=== PATIENT | female | born 1955 | race Two or more races ===

== ENCOUNTER 2018-04-20 16:57 | Inpatient (IN) | payer MEDICAID ==
[~2018-04-20] VITALS: Ht 165.1 cm; Wt 62.1 kg
--- NOTE | 2018-04-20 17:11 | Emergency Room Report ---
History of Present Illness General Chief Complaint: General Complaint Source: EMS, PMD Present Illness HPI Patient is a 63-year-old female sent in by intermediate for possible G-tube removal. Patient was noted to have recently had increased oral intake. Patient had prior history of psychiatric disease. The patient was noted to have previous G-tube placement. Allergies: Coded Allergies: No Known Allergies (Unverified , 04/20/18) Patient History Past Medical History: see triage record Reviewed Nursing Documentation: PMH: Agreed; PSxH: Agreed Nursing Documentation-PMH Hx Hypertension: Yes - hyperlipedema Hx COPD: Yes Hx Gastrointestinal Problems: Yes - gerd,gt History Of Psychiatric Problem: Yes - bipolar,depression Review of Systems All Other Systems: limited - by poor cooperation Physical Exam Vital Signs Date Time Temp Pulse Resp B/P (MAP) Pulse Ox O2 Delivery O2 Flow Rate FiO2 04/20/18 16:56 97.8 58 16 98/62 96 Room Air 97.9 Sp02 EP Interpretation: reviewed, normal General Appearance: normal inspection, well appearing, no apparent distress, alert, GCS 15, Chronically Ill Head: atraumatic ENT: normal ENT inspection, hearing grossly normal, normal voice Neck: normal inspection, full range of motion, supple, no bony tend Respiratory: normal inspection, no respiratory distress, no retraction, no accessory muscle use, wheezing Cardiovascular #1: regular rate, rhythm, no edema Gastrointestinal: normal inspection, normal bowel sounds, soft, no guarding, no hernia, other - gtube present, small amount of discharge, no erythema noted Genitourinary: no CVA tenderness Musculoskeletal: normal inspection, back normal, normal range of motion Neurologic: normal inspection, alert, oriented x3, responsive, placement officer III-XII nml as tested, speech normal Psychiatric: anxious, other - agitated Skin: normal inspection, normal color, no rash Medical Decision Making Diagnostic Impression: Primary Impression: Gastrostomy in place Additional Impression: COPD (chronic obstructive pulmonary disease) ER Course Patient presented for possible Gtube removal. The differential diagnosis included was not limited to psychosis, poor feeding, stoma leak among others.Because of complexity of patient's case laboratory testing and imaging studies were ordered. Preop labs were ordered. The patient was noted to have been awake and alert.Laboratory studies were unremarkable. Patient was discussed with Dr. Zana Lim for inpatient management due to primary care physician. Labs Test 04/20/18 17:20 White Blood Count 6.6 K/UL (4.8-10.8) Red Blood Count 3.71 M/UL (4.20-5.40) Hemoglobin 12.2 G/DL (12.0-16.0) Hematocrit 34.1 % (37.0-47.0) Mean Corpuscular Volume 92 FL (80-99) Mean Corpuscular Hemoglobin 32.8 PG (27.0-31.0) Mean Corpuscular Hemoglobin Concent 35.7 G/DL (32.0-36.0) Red Cell Distribution Width 11.8 % (11.6-14.8) Platelet Count 201 K/UL (150-450) Mean Platelet Volume 8.3 FL (6.5-10.1) Neutrophils (%) (Auto) 43.5 % (45.0-75.0) Lymphocytes (%) (Auto) 42.3 % (20.0-45.0) Monocytes (%) (Auto) 11.8 % (1.0-10.0) Eosinophils (%) (Auto) 1.6 % (0.0-3.0) Basophils (%) (Auto) 0.8 % (0.0-2.0) Prothrombin Time 10.2 SEC (9.30-11.50) Prothromb Time International Ratio 1.0 (0.9-1.1) Activated Partial Thromboplast Time 26 SEC (23-33) Sodium Level 143 MMOL/L (136-145) Potassium Level 4.1 MMOL/L (3.5-5.1) Chloride Level 106 MMOL/L (98-107) Carbon Dioxide Level 31 MMOL/L (21-32) Anion Gap 6 mmol/L (5-15) Blood Urea Nitrogen 14 mg/dL (7-18) Creatinine 0.8 MG/DL (0.55-1.30) Estimat Glomerular Filtration Rate > 60 mL/min (>60) Glucose Level 97 MG/DL (74-106) Calcium Level 8.5 MG/DL (8.5-10.1) Total Bilirubin 1.0 MG/DL (0.2-1.0) Aspartate Amino Transf (AST/SGOT) 15 U/L (15-37) Alanine Aminotransferase (ALT/SGPT) 20 U/L (12-78) Alkaline Phosphatase 84 U/L (46-116) Total Protein 6.7 G/DL (6.4-8.2) Albumin 3.4 G/DL (3.4-5.0) Globulin 3.3 g/dL Albumin/Globulin Ratio 1.0 (1.0-2.7) Lipase 130 U/L (73-393) Last Vital Signs Date Time Temp Pulse Resp B/P (MAP) Pulse Ox O2 Delivery O2 Flow Rate FiO2 04/20/18 16:56 97.8 58 16 98/62 96 Room Air 97.9 Status: unchanged Disposition: ADMITTED INPATIENT Condition: Serious Michael Thurman MD April 20, 2018 17:11
[2018-04-20] MEDS ORDERED: Nitroglycerin Subl 0.4mg tab SL PRN (17:30)
[2018-04-20] MEDS ORDERED: Metoclopramide 10mg/2ml Inj IVP PRN (17:30)
[2018-04-20] MEDS ORDERED: Miralax 17gm pkt ORAL PRN (17:30)
[2018-04-20] MEDS ORDERED: Promethazine HCl 12.5 MG in NS 55 ML IV PRN (17:30)
[2018-04-20] MEDS ORDERED: Promethazine HCl 25 MG in NS 55 ML IV PRN (17:30)
[2018-04-20] MEDS ORDERED: Mylanta II UD 30ml ORAL PRN (17:30)
[2018-04-20 17:39] LABS: BASOPHILS % (AUTO) 0.8 % (0.0-2.0); EOSINOPHILS % (AUTO) 1.6 % (0.0-3.0); HEMATOCRIT 34.1 % (37.0-47.0); HEMOGLOBIN 12.2 G/DL (12.0-16.0); LYMPHOCYTES % (AUTO) 42.3 % (20.0-45.0); MEAN CORPUSCULAR VOLUME 92 FL (80-99); MONOCYTES % (AUTO) 11.8 % (1.0-10.0); NEUTROPHILS % (AUTO) 43.5 % (45.0-75.0); PLATELET COUNT 201 K/UL (150-450); RED BLOOD COUNT 3.71 M/UL (4.20-5.40); RED CELL DISTRIBUTION WIDTH 11.8 % (11.6-14.8); WHITE BLOOD COUNT 6.6 K/UL (4.8-10.8)
[2018-04-20 17:47] LABS: ANION GAP 6 mmol/L (5-15); BLOOD UREA NITROGEN 14 mg/dL (7-18); CALCIUM 8.5 MG/DL (8.5-10.1); CARBON DIOXIDE 31 MMOL/L (21-32); CHLORIDE 106 MMOL/L (98-107); CREATININE 0.8 MG/DL (0.55-1.30); POTASSIUM 4.1 MMOL/L (3.5-5.1); SODIUM 143 MMOL/L (136-145)
[2018-04-20 17:50] LABS: ALANINE AMINOTRANSFERASE 20 U/L (12-78); ALBUMIN 3.4 G/DL (3.4-5.0); ALKALINE PHOSPHATASE 84 U/L (46-116); ASPARTATE AMINO TRANSFERASE 15 U/L (15-37)
[2018-04-20] MEDS: D5 1/2NS 1,000 ML IV SCH (18:00)
[2018-04-20 18:08] VITALS: BP 126/78
[2018-04-20] MEDS ORDERED: UNOBMED (18:09)
[2018-04-20] MEDS ORDERED: MILK OF MA400 MG/51 GT (18:19)
[2018-04-20] MEDS ORDERED: mylanta GT (18:19)
[2018-04-20] MEDS ORDERED: ASPIR 8181 MG GT (18:19)
[2018-04-20] MEDS ORDERED: LEXAPRO10 MG GT (18:19)
[2018-04-20] MEDS ORDERED: RISPERDAL2 MG ORAL (18:19)
[2018-04-20] MEDS ORDERED: MULTIVITAMINS1 EAC8 GT (18:19)
[2018-04-20] MEDS ORDERED: ACETAMINOPHEN325 M1 ORAL (18:19)
[2018-04-20] MEDS ORDERED: ACETAMINOPHEN325 M1 GT (18:19)
[2018-04-20] MEDS ORDERED: ATORVASTATIN CA40 MG GT (18:19)
[2018-04-20] MEDS ORDERED: RISPERDAL3 MG PO (18:48)
[2018-04-20] MEDS ORDERED: ATORVASTATIN CA80 MG GT (18:58)
[2018-04-20] MEDS ORDERED: ESCITALOPRAM OXA5 MG GT (18:58)
[2018-04-20] MEDS ORDERED: MYLANTA II30 ML GT (18:58)
[2018-04-20 19:25] VITALS: BP 125/74
[2018-04-20 20:10] VITALS: BP 101/55
[2018-04-20] MEDS: Heparin 5000 units/ml inj SUBQ SCH (20:20)
[2018-04-21 00:26] VITALS: BP 127/69
[2018-04-21 04:00] VITALS: BP 120/61
[2018-04-21] MEDS: D5 1/2NS 1,000 ML IV SCH ×2 (06:17→20:53)
[2018-04-21] MEDS: Heparin 5000 units/ml inj SUBQ SCH ×2 (08:43→20:52)
[2018-04-21] MEDS: Pantoprazole Inj IV SCH (08:43)
[2018-04-21] MEDS ORDERED: LORazepam Inj 2mg/ml 1ml IV ONE (10:30)
[2018-04-21] MEDS ORDERED: Haloperidol 5mg/ml Inj IM SCH (10:30)
[2018-04-21] MEDS ORDERED: DiphenhydrAMINE 50mg/ml Inj IVP ONE (10:30)
[2018-04-21] MEDS ORDERED: LORazepam Inj 2mg/ml 1ml IM SCH (10:45)
[2018-04-21] MEDS ORDERED: DiphenhydrAMINE 50mg/ml Inj IM SCH (10:45)
--- NOTE | 2018-04-21 10:56 | GI Initial Consult Note ---
History of Present Illness General Date patient seen: Apr 21, 2018 Time patient seen: 13:46 Reason for Hospitalization: General Complaint Referring physician: NAEL PISANO Reason for Consultation: GT REMOVAL Present Illness HPI Patient is a 63-year-old female [facility] by [facility] for possible G-tube removal. Patient was noted to have recently had increased oral intake. Patient had prior history of psychiatric disease. The patient was noted to have previous G-tube placement. GI consulted for GT removal. Unable to perform at this time, the patient is non cooperative and has been refusing all medications and nursing care. Psychiatry has seen the patient. No anemia. No leukocytosis. The patient is verbal and shows no sign of dysphagia or deficit. Home Meds Reported Medications Al Hydroxide/mg Hydroxide (Mag-Al Plus Suspension) 30 Ml Oral.susp, 30 ML GT, ML PRN GI UPSET 04/20/18 Escitalopram Oxalate (ESCITALOPRAM OXALATE) 5 Mg Tablet, 5 MG GT DAILY, TAB FOR DEPRESSION 04/20/18 Atorvastatin Calcium* (LIPITOR*) 80 Mg Tablet, 80 MG GT DAILY, TAB 04/20/18 Risperidone (RISPERDAL) 3 Mg Tablet, 3 MG PO BID, TAB FOR SCHIZOPHRENIA 04/20/18 Acetaminophen* (ACETAMINOPHEN 325MG TABLET*) 325 Mg Tablet, 650 MG GT Q4H PRN for Prn Headache/Temp > 101 MDD 3 GRAMS/24HRS, TAB 04/20/18 Acetaminophen* (ACETAMINOPHEN 325MG TABLET*) 325 Mg Tablet, 650 MG ORAL Q4H PRN for Mild Pain (Pain Scale 1-3) MDD 3 GRAMS/24HRS, TAB 04/20/18 Multivitamin With Minerals (MULTIVITAMINS WITH MINERALS*) 1 Each Tablet, 1 TAB GT DAILY, TAB 04/20/18 Magnesium Hydroxide* (MILK OF MAGNESIA*) 400 Mg/5 Ml Oral.susp, 30 ML GT DAILY PRN for Constipation, ML 04/20/18 Aspirin* (ASPIR 81*) 81 Mg Tablet.dr, 81 MG GT DAILY, TAB 04/20/18 Unable to Obtain Medications (UNABLE TO OBTAIN MEDS) 1 Ea Ea 04/20/18 Discontinued Reported Medications Risperidone* (RISPERDAL*) 2 Mg Tablet, 3 MG ORAL BID, #30 TAB 0 Refills 04/20/18 [mylanta] No Conflict Check, 30 ML GT PRN 5/31/18 Escitalopram Oxalate* (LEXAPRO*) 10 Mg Tablet, 5 MG GT DAILY, TAB 04/20/18 Atorvastatin Calcium* (ATORVASTATIN CALCIUM*) 40 Mg Tablet, 80 MG GT BEDTIME, TAB 04/20/18 Med list reviewed/reconciled: Yes Allergies: Coded Allergies: No Known Allergies (Unverified , 04/20/18) Patient History History Provided By: Medical Record PMH Narrative Past Medical History: see triage record Reviewed Nursing Documentation: PMH: Agreed; PSxH: Agreed Nursing Documentation-PMH Hx Hypertension: Yes - hyperlipidemia Hx COPD: Yes Hx Gastrointestinal Problems: Yes - GERD, GT removal History Of Psychiatric Problem: Yes - bipolar,depression Social History: Denies: smoking, alcohol use, drug use, other Review of Systems All Other Systems: negative except mentioned in HPI Physical Exam Vital Signs Date Time Temp Pulse Resp B/P (MAP) Pulse Ox O2 Delivery O2 Flow Rate FiO2 04/20/18 16:56 97.8 58 16 98/62 96 Room Air 97.9 Sp02 EP Interpretation: reviewed, normal Labs Laboratory Tests Test 04/20/18 17:20 White Blood Count 6.6 K/UL (4.8-10.8) Red Blood Count 3.71 M/UL (4.20-5.40) L Hemoglobin 12.2 G/DL (12.0-16.0) Hematocrit 34.1 % (37.0-47.0) L Mean Corpuscular Volume 92 FL (80-99) Mean Corpuscular Hemoglobin 32.8 PG (27.0-31.0) H Mean Corpuscular Hemoglobin Concent 35.7 G/DL (32.0-36.0) Red Cell Distribution Width 11.8 % (11.6-14.8) Platelet Count 201 K/UL (150-450) Mean Platelet Volume 8.3 FL (6.5-10.1) Neutrophils (%) (Auto) 43.5 % (45.0-75.0) L Lymphocytes (%) (Auto) 42.3 % (20.0-45.0) Monocytes (%) (Auto) 11.8 % (1.0-10.0) H Eosinophils (%) (Auto) 1.6 % (0.0-3.0) Basophils (%) (Auto) 0.8 % (0.0-2.0) Prothrombin Time 10.2 SEC (9.30-11.50) Prothromb Time International Ratio 1.0 (0.9-1.1) Activated Partial Thromboplast Time 26 SEC (23-33) Sodium Level 143 MMOL/L (136-145) Potassium Level 4.1 MMOL/L (3.5-5.1) Chloride Level 106 MMOL/L (98-107) Carbon Dioxide Level 31 MMOL/L (21-32) Anion Gap 6 mmol/L (5-15) Blood Urea Nitrogen 14 mg/dL (7-18) Creatinine 0.8 MG/DL (0.55-1.30) Estimat Glomerular Filtration Rate > 60 mL/min (>60) Glucose Level 97 MG/DL (74-106) Calcium Level 8.5 MG/DL (8.5-10.1) Total Bilirubin 1.0 MG/DL (0.2-1.0) Aspartate Amino Transf (AST/SGOT) 15 U/L (15-37) Alanine Aminotransferase (ALT/SGPT) 20 U/L (12-78) Alkaline Phosphatase 84 U/L (46-116) Total Protein 6.7 G/DL (6.4-8.2) Albumin 3.4 G/DL (3.4-5.0) Globulin 3.3 g/dL Albumin/Globulin Ratio 1.0 (1.0-2.7) Lipase 130 U/L (73-393) General Appearance: well appearing, no apparent distress, alert Head: normocephalic EENT: PERRL/EOMI, normal ENT inspection Neck: supple Respiratory: normal breath sounds, no respiratory distress Cardiovascular: normal rate Gastrointestinal: normal inspection, non tender, soft, normal bowel sounds, non -distended Rectal: deferred Genitourinary: no CVA tenderness Musculoskeletal: normal inspection, back normal Neurologic: alert, responsive Psychiatric: other - see pysch note Skin: normal inspection, normal color, no rash, warm/dry, palpation normal, well hydrated Lymphatic: normal inspection, no adenopathy Current Medications Current Medications Medications (Trade) Dose Ordered Sig/Osito Route PRN Reason Start Time Stop Time Status Last Admin Dose Admin Acetaminophen (Tylenol) 650 mg Q4H PRN ORAL fever (temp>100.5F) 04/20/18 17:30 05/20/18 17:29 Al Hydroxide/Mg Hydroxide (Mylanta II) 30 ml Q6H PRN ORAL dyspepsia 04/20/18 17:30 05/20/18 17:29 Dextrose (Dextrose 50%) 25 ml STAT PRN IV hypoglycemia 04/20/18 17:45 05/20/18 17:44 Dextrose (Dextrose 50%) 50 ml STAT PRN IV Hypoglycemia 04/20/18 17:30 05/20/18 17:29 Dextrose/Sodium Chloride 1,000 ml @ 75 mls/hr [id number] IV 04/20/18 18:00 05/20/18 17:59 04/21/18 06:17 Diphenhydramine HCl (Benadryl) 25 mg ONCE IM 04/21/18 10:45 04/21/18 11:45 Diphenhydramine HCl (Benadryl) 25 mg Q6H PRN ORAL Itching/Pruritis 04/20/18 17:30 05/20/18 17:29 Haloperidol Lactate (Haldol) 5 mg ONCE IM 04/21/18 10:30 04/21/18 11:45 Heparin Sodium (Porcine) (Heparin 5000 units/ml) 5,000 units EVERY 12 HOURS SUBQ 04/20/18 21:00 05/20/18 20:59 Lorazepam (Ativan 2mg/ml 1ml) 1 mg ONCE IM 04/21/18 10:45 04/21/18 11:45 Lorazepam (Ativan 2mg/ml 1ml) 1 mg Q4H PRN IV agitation 04/20/18 17:30 04/27/18 17:29 Metoclopramide HCl (Reglan) 10 mg Q6H PRN IVP severe nausea 04/20/18 17:30 05/20/18 17:29 Nitroglycerin (Ntg) 0.4 mg Q5M X 3 DOSES PRN SL Prn Chest Pain 04/20/18 17:30 05/20/18 17:29 Ondansetron HCl (Zofran) 4 mg Q6H PRN IVP Nausea & Vomiting 04/20/18 17:30 05/20/18 17:29 Pantoprazole (Protonix) 40 mg DAILY IV 04/21/18 09:00 05/21/18 08:59 Polyethylene Glycol (Miralax) 17 gm HSPRN PRN ORAL Constipation 04/20/18 17:30 05/20/18 17:29 Promethazine HCl 25 mg/Sodium Chloride 56 ml @ 110 mls/hr Q6H PRN IV Refractory N/V 04/20/18 17:30 05/20/18 17:29 Temazepam (Restoril) 15 mg HSPRN PRN ORAL Insomnia 04/20/18 17:30 04/27/18 17:29 GI: Plan Problems: (1) G tube feedings (2) Gastrostomy in place Plan GT removed @ 1500, no shower for 24 hours. Prn dressing change. pt refusing all medication and care at this time the patient appears to have no signs of dysphagia or swallowing deficit will adv diet as tolerated ST evaluation refused by patient psych to see symptomatic treatment fu labs Discussed with Dr. Reynolds. Thank you for this patient referral, we will follow. The patient was seen and examined at bedside and all new and available data was reviewed in the patients chart. I agree with the above findings, impression and plan. (Patient seen earlier today. Signature stamp does not reflect patient encounter time.). - MD Kaycee TreadwellReunion Rehabilitation Hospital PhoenixArceliaEzekiel MEAT COUNTER CLERK Apr 21, 2018 10:56
--- NOTE | 2018-04-21 12:20 | Consultation ---
History of Present Illness General Date patient seen: Apr 21, 2018 Chief Complaint: General Complaint Present Illness HPI 63-year-old female sent in by half-way for possible G-tube removal. the pt is uncooperative and refusing care. not answering questions. poor insight. lacks capacity Allergies: Coded Allergies: No Known Allergies (Unverified , 04/20/18) Medication History Scheduled Aspirin* (Aspir 81*), 81 MG GT DAILY, (Reported) Atorvastatin Calcium* (Lipitor*), 80 MG GT DAILY, (Reported) Escitalopram Oxalate (Escitalopram Oxalate), 5 MG GT DAILY, (Reported) Multivitamin With Minerals (Multivitamins With Minerals*), 1 TAB GT DAILY, ( Reported) Risperidone (Risperdal), 3 MG PO BID, (Reported) Scheduled PRN Acetaminophen* (Acetaminophen 325MG Tablet*), 650 MG ORAL Q4H PRN for Mild Pain (Pain Scale 1-3), (Reported) Acetaminophen* (Acetaminophen 325MG Tablet*), 650 MG GT Q4H PRN for Prn Headache /Temp > 101, (Reported) Magnesium Hydroxide* (Milk Of Magnesia*), 30 ML GT DAILY PRN for Constipation, ( Reported) Miscellaneous Medications Al Hydroxide/mg Hydroxide (Mag-Al Plus Suspension), 30 ML GT, (Reported) Unable to Obtain Medications (Unable To Obtain Meds), (Reported) Discontinued Medications Atorvastatin Calcium* (Atorvastatin Calcium*), 80 MG GT BEDTIME, (Reported) Discontinued Reason: Prescription changed Escitalopram Oxalate* (Lexapro*), 5 MG GT DAILY, (Reported) Discontinued Reason: Prescription changed Risperidone* (Risperdal*), 3 MG ORAL BID, (Reported) Discontinued Reason: Prescription changed [mylanta], 30 ML GT PRN, (Reported) Discontinued Reason: Prescription changed Patient History Healthcare decision maker Resuscitation status Advanced Directive on File Review of Systems Psychiatric: Reports: prior hx, depressed feelings, emotional problems, hallucinations Physical Exam General Appearance: no apparent distress, alert Neurologic: alert, depressed affect Last 24 Hour Vital Signs Date Time Temp Pulse Resp B/P (MAP) Pulse Ox O2 Delivery O2 Flow Rate FiO2 04/21/18 05:27 Room Air 04/21/18 04:00 98.0 58 20 120/61 95 Room Air 98.0 04/21/18 00:26 98.0 60 18 127/69 97 Room Air 98.0 04/20/18 20:10 97.7 54 17 101/55 96 Room Air 97.7 04/20/18 19:40 98.2 72 17 125/74 100 Room Air 98.2 04/20/18 19:25 98.2 72 17 125/74 100 Room Air 98.2 04/20/18 18:08 98.1 71 18 126/78 99 Room Air 98.1 04/20/18 16:56 97.8 58 16 98/62 96 Room Air 97.9 Intake and Output 04/20/18 04/21/18 19:00 07:00 Intake Total 0 ml 750 ml Balance 0 ml 750 ml Intake Oral 0 ml IV Total 750 ml # Voids 1 Laboratory Tests Test 04/20/18 17:20 White Blood Count 6.6 K/UL (4.8-10.8) Red Blood Count 3.71 M/UL (4.20-5.40) L Hemoglobin 12.2 G/DL (12.0-16.0) Hematocrit 34.1 % (37.0-47.0) L Mean Corpuscular Volume 92 FL (80-99) Mean Corpuscular Hemoglobin 32.8 PG (27.0-31.0) H Mean Corpuscular Hemoglobin Concent 35.7 G/DL (32.0-36.0) Red Cell Distribution Width 11.8 % (11.6-14.8) Platelet Count 201 K/UL (150-450) Mean Platelet Volume 8.3 FL (6.5-10.1) Neutrophils (%) (Auto) 43.5 % (45.0-75.0) L Lymphocytes (%) (Auto) 42.3 % (20.0-45.0) Monocytes (%) (Auto) 11.8 % (1.0-10.0) H Eosinophils (%) (Auto) 1.6 % (0.0-3.0) Basophils (%) (Auto) 0.8 % (0.0-2.0) Prothrombin Time 10.2 SEC (9.30-11.50) Prothromb Time International Ratio 1.0 (0.9-1.1) Activated Partial Thromboplast Time 26 SEC (23-33) Sodium Level 143 MMOL/L (136-145) Potassium Level 4.1 MMOL/L (3.5-5.1) Chloride Level 106 MMOL/L (98-107) Carbon Dioxide Level 31 MMOL/L (21-32) Anion Gap 6 mmol/L (5-15) Blood Urea Nitrogen 14 mg/dL (7-18) Creatinine 0.8 MG/DL (0.55-1.30) Estimat Glomerular Filtration Rate > 60 mL/min (>60) Glucose Level 97 MG/DL (74-106) Calcium Level 8.5 MG/DL (8.5-10.1) Total Bilirubin 1.0 MG/DL (0.2-1.0) Aspartate Amino Transf (AST/SGOT) 15 U/L (15-37) Alanine Aminotransferase (ALT/SGPT) 20 U/L (12-78) Alkaline Phosphatase 84 U/L (46-116) Total Protein 6.7 G/DL (6.4-8.2) Albumin 3.4 G/DL (3.4-5.0) Globulin 3.3 g/dL Albumin/Globulin Ratio 1.0 (1.0-2.7) Lipase 130 U/L (73-393) Height (Feet): 5 Height (Inches): 5.00 Weight (Pounds): 137 Medications Current Medications Medications (Trade) Dose Ordered Sig/Osito Route PRN Reason Start Time Stop Time Status Last Admin Dose Admin Acetaminophen (Tylenol) 650 mg Q4H PRN ORAL fever (temp>100.5F) 04/20/18 17:30 05/20/18 17:29 Al Hydroxide/Mg Hydroxide (Mylanta II) 30 ml Q6H PRN ORAL dyspepsia 04/20/18 17:30 05/20/18 17:29 Dextrose (Dextrose 50%) 25 ml STAT PRN IV hypoglycemia 04/20/18 17:45 05/20/18 17:44 Dextrose (Dextrose 50%) 50 ml STAT PRN IV Hypoglycemia 04/20/18 17:30 05/20/18 17:29 Dextrose/Sodium Chloride 1,000 ml @ 75 mls/hr [id number] IV 04/20/18 18:00 05/20/18 17:59 04/21/18 06:17 Diphenhydramine HCl (Benadryl) 25 mg Q6H PRN ORAL Itching/Pruritis 04/20/18 17:30 05/20/18 17:29 Heparin Sodium (Porcine) (Heparin 5000 units/ml) 5,000 units EVERY 12 HOURS SUBQ 04/20/18 21:00 05/20/18 20:59 Lorazepam (Ativan 2mg/ml 1ml) 1 mg Q4H PRN IV agitation 04/20/18 17:30 04/27/18 17:29 Metoclopramide HCl (Reglan) 10 mg Q6H PRN IVP severe nausea 04/20/18 17:30 05/20/18 17:29 Nitroglycerin (Ntg) 0.4 mg Q5M X 3 DOSES PRN SL Prn Chest Pain 04/20/18 17:30 05/20/18 17:29 Ondansetron HCl (Zofran) 4 mg Q6H PRN IVP Nausea & Vomiting 04/20/18 17:30 05/20/18 17:29 Pantoprazole (Protonix) 40 mg DAILY IV 04/21/18 09:00 05/21/18 08:59 Polyethylene Glycol (Miralax) 17 gm HSPRN PRN ORAL Constipation 04/20/18 17:30 05/20/18 17:29 Promethazine HCl 25 mg/Sodium Chloride 56 ml @ 110 mls/hr Q6H PRN IV Refractory N/V 04/20/18 17:30 05/20/18 17:29 Temazepam (Restoril) 15 mg HSPRN PRN ORAL Insomnia 04/20/18 17:30 04/27/18 17:29 Assessment/Plan Assessment/Plan mdd psychosis -the pt lacks capacity to make decisions -zyprexa 10mg qhs -lexapro increase to 15mg qam -Dewayne Castellanos M.D. Apr 21, 2018 12:20
[2018-04-21] MEDS ORDERED: Escitalopram Oxalate 5mg tab ORAL SCH (13:00)
[2018-04-21] MEDS: LORazepam Inj 2mg/ml 1ml IV PRN (15:39)
[2018-04-21 16:00] VITALS: BP 114/69
[2018-04-21] MEDS: Morphine 5mg/2.5ml Oral Soln ORAL PRN (17:25)
--- NOTE | 2018-04-21 18:02 | History and Physical Report ---
DATE OF ADMISSION: 04/20/2018 CONSULTANTS: 1. Clif Reynolds M.D. 2. Elsa Singh M.D. 3. Dewayne Lazaro M.D. CHIEF COMPLAINT: Here for G-tube adjustment, COPD, weakness and confusion. BRIEF HISTORY: This is a 63-year-old female, who lives at [facility] with history of G-tube placement for failure to thrive. Apparently, she has been eating. The patient was sent to ER to remove G-tube. They were unable to do so. The patient was admitted for G-tube removal. Currently, confused in bed, refusing to answer questions. REVIEW OF SYSTEMS: Unavailable. PAST MEDICAL HISTORY: Encephalopathy, schizophrenia, COPD, CRF, hypertension, and failure to thrive. PAST SURGICAL HISTORY: G-tube. MEDICATIONS: Zyprexa, Lexapro, Protonix, heparin, Tylenol, MiraLAX, Zofran, Benadryl, Mylanta . ALLERGIES: Denies. SOCIAL HISTORY: Unable to obtain secondary to the patient's refusal. PHYSICAL EXAMINATION: GENERAL: Lethargic in bed, sleepy, refusing to answer questions. VITAL SIGNS: Temperature 98 degrees, pulse 58, respirations 20, and blood pressure 120/61. CARDIOVASCULAR: No murmur. LUNGS: Distant and clear. ABDOMEN: Bowel sounds positive. Nontender. Nondistended. EXTREMITIES: No cyanosis or edema. NEUROLOGIC: The patient moves all extremities, does not follow commands. LABORATORY AND DIAGNOSTIC DATA: CBC is normal. BMP is normal. INR is 1.0 and PTT 26. ASSESSMENT: 1. Encephalopathy. 2. Schizophrenia. 3. Chronic obstructive pulmonary disease. 4. Hypertension. 5. History of failure to thrive. PLAN: 1. Continue previous medications. 2. Blood pressure control. 3. Psychiatric treatment. 4. Dietary follow. 5. OT/PT. 6. Dietary evaluation. 7. CBC and BMP in the morning. 8. GI to remove G-tube if indicated. Zana Lim D.O. DR: BASILIO JOB#: [id number] CC:
[2018-04-21 19:28] VITALS: BP 115/65
--- NOTE | 2018-04-21 20:09 | Consultation ---
History of Present Illness General Date patient seen: Apr 21, 2018 Chief Complaint: General Complaint Referring physician: NAEL PISANO Reason for Consultation: GT REMOVAL Present Illness HPI 63-year-old female with hx of COPD, psychosis, depression, feeding by gtube, correction resident sent in by correction for possible G-tube removal. Patient was noted to have recently had increased oral intake. Pt is a very poor historian and doesn't answer any questions. Seems to be awake and comfortable. Allergies: Coded Allergies: No Known Allergies (Unverified , 04/20/18) Medication History Scheduled Aspirin* (Aspir 81*), 81 MG GT DAILY, (Reported) Atorvastatin Calcium* (Lipitor*), 80 MG GT DAILY, (Reported) Escitalopram Oxalate (Escitalopram Oxalate), 5 MG GT DAILY, (Reported) Multivitamin With Minerals (Multivitamins With Minerals*), 1 TAB GT DAILY, ( Reported) Risperidone (Risperdal), 3 MG PO BID, (Reported) Scheduled PRN Acetaminophen* (Acetaminophen 325MG Tablet*), 650 MG ORAL Q4H PRN for Mild Pain (Pain Scale 1-3), (Reported) Acetaminophen* (Acetaminophen 325MG Tablet*), 650 MG GT Q4H PRN for Prn Headache /Temp > 101, (Reported) Magnesium Hydroxide* (Milk Of Magnesia*), 30 ML GT DAILY PRN for Constipation, ( Reported) Miscellaneous Medications Al Hydroxide/mg Hydroxide (Mag-Al Plus Suspension), 30 ML GT, (Reported) Unable to Obtain Medications (Unable To Obtain Meds), (Reported) Discontinued Medications Atorvastatin Calcium* (Atorvastatin Calcium*), 80 MG GT BEDTIME, (Reported) Discontinued Reason: Prescription changed Escitalopram Oxalate* (Lexapro*), 5 MG GT DAILY, (Reported) Discontinued Reason: Prescription changed Risperidone* (Risperdal*), 3 MG ORAL BID, (Reported) Discontinued Reason: Prescription changed [mylanta], 30 ML GT PRN, (Reported) Discontinued Reason: Prescription changed Patient History Healthcare decision maker Resuscitation status Advanced Directive on File Past Medical/Surgical History Past Medical/Surgical History: (1) Psychosis (2) Depression (3) Gastrostomy in place Review of Systems All Other Systems: negative except mentioned in HPI Physical Exam General Appearance: WD/WN, no apparent distress, lethargic Lines, tubes and drains: peripheral HEENT: normocephalic, atraumatic, anicteric, mucous membranes moist Neck: non-tender, normal alignment, supple Respiratory/Chest: chest wall non-tender, lungs clear, normal breath sounds, no respiratory distress Breasts: no masses Cardiovascular/Chest: normal peripheral pulses, normal rate, regular rhythm, regularly irregular Abdomen: normal bowel sounds, non tender, soft, no organomegaly, no mass Genitourinary/Rectal: normal genital exam Extremities: normal range of motion, non-tender, normal inspection, no calf tenderness, normal capillary refill Skin Exam: normal pigmentation Neurologic: rn appeals II-XII grossly normal Physical Exam Narrative General Appearance: WD/WN HEENT: normocephalic, atraumatic Respiratory/Chest: chest wall non-tender, lungs clear Breasts: no masses Cardiovascular: normal peripheral pulses, normal rate Abdomen: normal bowel sounds, soft, non tender Genitourinary: normal external genitalia Extremities: no cyanosis Last 24 Hour Vital Signs Date Time Temp Pulse Resp B/P (MAP) Pulse Ox O2 Delivery O2 Flow Rate FiO2 04/21/18 19:28 97.5 62 16 115/65 97 Room Air 97.5 04/21/18 16:00 96.8 58 19 114/69 97 Room Air 96.8 04/21/18 05:27 Room Air 04/21/18 04:00 98.0 58 20 120/61 95 Room Air 98.0 04/21/18 00:26 98.0 60 18 127/69 97 Room Air 98.0 04/20/18 20:10 97.7 54 17 101/55 96 Room Air 97.7 Intake and Output 04/20/18 04/21/18 19:00 07:00 Intake Total 0 ml 750 ml Balance 0 ml 750 ml Intake Oral 0 ml IV Total 750 ml # Voids 1 Height (Feet): 5 Height (Inches): 5.00 Weight (Pounds): 137 Medications Current Medications Medications (Trade) Dose Ordered Sig/Osito Route PRN Reason Start Time Stop Time Status Last Admin Dose Admin Acetaminophen (Tylenol) 650 mg Q4H PRN ORAL fever (temp>100.5F) 04/20/18 17:30 05/20/18 17:29 Al Hydroxide/Mg Hydroxide (Mylanta II) 30 ml Q6H PRN ORAL dyspepsia 04/20/18 17:30 05/20/18 17:29 Dextrose (Dextrose 50%) 25 ml STAT PRN IV hypoglycemia 04/20/18 17:45 05/20/18 17:44 Dextrose (Dextrose 50%) 50 ml STAT PRN IV Hypoglycemia 04/20/18 17:30 05/20/18 17:29 Dextrose/Sodium Chloride 1,000 ml @ 75 mls/hr [id number] IV 04/20/18 18:00 05/20/18 17:59 04/21/18 06:17 Diphenhydramine HCl (Benadryl) 25 mg Q6H PRN ORAL Itching/Pruritis 04/20/18 17:30 05/20/18 17:29 Escitalopram Oxalate (Lexapro) 15 mg DAILY ORAL 04/22/18 09:00 05/22/18 08:59 Heparin Sodium (Porcine) (Heparin 5000 units/ml) 5,000 units EVERY 12 HOURS SUBQ 04/20/18 21:00 05/20/18 20:59 Lorazepam (Ativan 2mg/ml 1ml) 1 mg Q4H PRN IV agitation 04/20/18 17:30 04/27/18 17:29 04/21/18 15:39 Metoclopramide HCl (Reglan) 10 mg Q6H PRN IVP severe nausea 04/20/18 17:30 05/20/18 17:29 Morphine Sulfate (Morphine 5mg/ 2.5ml Oral Soln) 5 mg Q4H PRN ORAL For Pain 04/21/18 15:45 05/21/18 15:44 04/21/18 17:25 Nitroglycerin (Ntg) 0.4 mg Q5M X 3 DOSES PRN SL Prn Chest Pain 04/20/18 17:30 05/20/18 17:29 Olanzapine (ZyPREXA) 10 mg BEDTIME ORAL 04/21/18 21:00 05/21/18 20:59 Ondansetron HCl (Zofran) 4 mg Q6H PRN IVP Nausea & Vomiting 04/20/18 17:30 05/20/18 17:29 Pantoprazole (Protonix) 40 mg DAILY IV 04/21/18 09:00 05/21/18 08:59 Polyethylene Glycol (Miralax) 17 gm HSPRN PRN ORAL Constipation 04/20/18 17:30 05/20/18 17:29 Promethazine HCl 25 mg/Sodium Chloride 56 ml @ 110 mls/hr Q6H PRN IV Refractory N/V 04/20/18 17:30 05/20/18 17:29 Temazepam (Restoril) 15 mg HSPRN PRN ORAL Insomnia 04/20/18 17:30 04/27/18 17:29 Assessment/Plan Problem List: (1) G tube feedings ICD Codes: Z93.1 - Gastrostomy status SNOMED: 495670953, 575331531 (2) COPD (chronic obstructive pulmonary disease) ICD Codes: J44.9 - Chronic obstructive pulmonary disease, unspecified SNOMED: 90098006 (3) Depression ICD Codes: F32.9 - Major depressive disorder, single episode, unspecified SNOMED: 21426709 (4) Psychosis ICD Codes: F29 - Unspecified psychosis not due to a substance or known physiological condition SNOMED: 27317514 Assessment/Plan GI evaluation psych evaluation symptomatic treatment titrate fio2 to sat of 92% prn respiratory treatment dvt prophylaxis. Elsa Singh MD Apr 21, 2018 20:09
[2018-04-21] MEDS: OLANZapine 10mg tab ORAL SCH (20:52)
[2018-04-22 04:00] VITALS: BP 115/57
[2018-04-22] MEDS: Morphine 5mg/2.5ml Oral Soln ORAL PRN ×3 (05:03→17:57)
[2018-04-22 08:00] VITALS: BP 170/100
--- NOTE | 2018-04-22 08:38 | General Progress Note ---
Assessment/Plan Problem List: (1) COPD (chronic obstructive pulmonary disease) ICD Codes: J44.9 - Chronic obstructive pulmonary disease, unspecified SNOMED: 49360719 (2) G tube feedings ICD Codes: Z93.1 - Gastrostomy status SNOMED: 242868625, 755879012 Assessment/Plan GT has been removed patient is eating refused ABD us fu Subjective ROS Limited/Unobtainable: Yes Allergies: Coded Allergies: No Known Allergies (Unverified , 04/20/18) Subjective refusing PT wants pain pain meds Objective Last 24 Hour Vital Signs Date Time Temp Pulse Resp B/P (MAP) Pulse Ox O2 Delivery O2 Flow Rate FiO2 04/22/18 06:37 Room Air 04/22/18 06:02 97.5 04/22/18 05:03 97.5 04/22/18 04:00 97.5 65 17 115/57 96 97.5 04/22/18 00:00 Room Air 04/21/18 22:51 Room Air 04/21/18 19:28 97.5 62 16 115/65 97 Room Air 97.5 04/21/18 16:00 96.8 58 19 114/69 97 Room Air 96.8 Intake and Output 04/21/18 04/22/18 19:00 07:00 Intake Total 1380 ml 1185 ml Balance 1380 ml 1185 ml Intake Oral 480 ml 360 ml IV Total 900 ml 825 ml # Voids 2 3 Height (Feet): 5 Height (Inches): 5.00 Weight (Pounds): 137 General Appearance: no apparent distress EENT: normal ENT inspection Neck: supple Cardiovascular: normal rate Respiratory/Chest: decreased breath sounds Abdomen: normal bowel sounds, non tender, soft Extremities: non-tender Clif Reynolsd MD Apr 22, 2018 08:38
--- NOTE | 2018-04-22 08:49 | General Progress Note ---
Assessment/Plan Problem List: (1) COPD (chronic obstructive pulmonary disease) ICD Codes: J44.9 - Chronic obstructive pulmonary disease, unspecified SNOMED: 91852427 (2) G tube feedings ICD Codes: Z93.1 - Gastrostomy status SNOMED: 346787077, 884379625 Status: stable, progressing Assessment/Plan ot pt diet cbc bmp am dc plan Subjective Constitutional: Reports: weakness Allergies: Coded Allergies: No Known Allergies (Unverified , 04/20/18) All Systems: reviewed and negative except above Subjective calm in bed Objective Last 24 Hour Vital Signs Date Time Temp Pulse Resp B/P (MAP) Pulse Ox O2 Delivery O2 Flow Rate FiO2 04/22/18 06:37 Room Air 04/22/18 06:02 97.5 04/22/18 05:03 97.5 04/22/18 04:00 97.5 65 17 115/57 96 97.5 04/22/18 00:00 Room Air 04/21/18 22:51 Room Air 04/21/18 19:28 97.5 62 16 115/65 97 Room Air 97.5 04/21/18 16:00 96.8 58 19 114/69 97 Room Air 96.8 Intake and Output 04/21/18 04/22/18 19:00 07:00 Intake Total 1380 ml 1185 ml Balance 1380 ml 1185 ml Intake Oral 480 ml 360 ml IV Total 900 ml 825 ml # Voids 2 3 Height (Feet): 5 Height (Inches): 5.00 Weight (Pounds): 137 General Appearance: lethargic EENT: normal ENT inspection Neck: normal alignment Cardiovascular: normal peripheral pulses, normal rate, regular rhythm Respiratory/Chest: chest wall non-tender, lungs clear, normal breath sounds Abdomen: normal bowel sounds, non tender, soft Extremities: normal inspection Edema: no edema noted Arm (L), no edema noted Arm (R), no edema noted Leg (L), no edema noted Leg (R), no edema noted Pedal (L), no edema noted Pedal (R), no edema noted Generalized Neurologic: motor weakness Skin: normal pigmentation, warm/dry Zana Lim DO Apr 22, 2018 08:49
[2018-04-22] MEDS: LORazepam Inj 2mg/ml 1ml IV PRN (08:54)
[2018-04-22] MEDS: D5 1/2NS 1,000 ML IV SCH ×2 (08:54→18:31)
[2018-04-22] MEDS: Pantoprazole Inj IV SCH (09:00)
[2018-04-22] MEDS: Heparin 5000 units/ml inj SUBQ SCH ×2 (09:00→20:19)
[2018-04-22] MEDS: Escitalopram Oxalate 5mg tab ORAL SCH (09:00)
[2018-04-22 12:00] VITALS: BP 99/66
--- NOTE | 2018-04-22 16:32 | Pulmonology Progress Note ---
Assessment/Plan Problems: (1) COPD (chronic obstructive pulmonary disease) (2) Gastrostomy in place (3) Psychosis (4) Depression Assessment/Plan tolerating feeding Gtube is removed continue psychiatric meds dvt prophylaxis refusing pt Subjective ROS Limited/Unobtainable: No Allergies: Coded Allergies: No Known Allergies (Unverified , 04/20/18) Objective Last 24 Hour Vital Signs Date Time Temp Pulse Resp B/P (MAP) Pulse Ox O2 Delivery O2 Flow Rate FiO2 04/22/18 12:00 97.5 61 20 99/66 95 97.5 04/22/18 06:37 Room Air 04/22/18 06:02 97.5 04/22/18 05:03 97.5 04/22/18 04:00 97.5 65 17 115/57 96 97.5 04/22/18 00:00 Room Air 04/21/18 22:51 Room Air 04/21/18 19:28 97.5 62 16 115/65 97 Room Air 97.5 Intake and Output 04/21/18 04/22/18 19:00 07:00 Intake Total 1380 ml 1185 ml Balance 1380 ml 1185 ml Intake Oral 480 ml 360 ml IV Total 900 ml 825 ml # Voids 2 3 Objective General Appearance: WD/WN HEENT: normocephalic, atraumatic Respiratory/Chest: chest wall non-tender, lungs clear Breasts: no masses Cardiovascular: normal peripheral pulses, normal rate Abdomen: normal bowel sounds, soft, non tender Genitourinary: normal external genitalia Extremities: no cyanosis Current Medications Medications (Trade) Dose Ordered Sig/Osito Route PRN Reason Start Time Stop Time Status Last Admin Dose Admin Acetaminophen (Tylenol) 650 mg Q4H PRN ORAL fever (temp>100.5F) 04/20/18 17:30 05/20/18 17:29 Al Hydroxide/Mg Hydroxide (Mylanta II) 30 ml Q6H PRN ORAL dyspepsia 04/20/18 17:30 05/20/18 17:29 Dextrose (Dextrose 50%) 25 ml STAT PRN IV hypoglycemia 04/20/18 17:45 05/20/18 17:44 Dextrose (Dextrose 50%) 50 ml STAT PRN IV Hypoglycemia 04/20/18 17:30 05/20/18 17:29 Dextrose/Sodium Chloride 1,000 ml @ 75 mls/hr [id number] IV 04/20/18 18:00 05/20/18 17:59 04/22/18 08:54 Diphenhydramine HCl (Benadryl) 25 mg Q6H PRN ORAL Itching/Pruritis 04/20/18 17:30 05/20/18 17:29 Escitalopram Oxalate (Lexapro) 15 mg DAILY ORAL 04/22/18 09:00 05/22/18 08:59 Heparin Sodium (Porcine) (Heparin 5000 units/ml) 5,000 units EVERY 12 HOURS SUBQ 04/20/18 21:00 05/20/18 20:59 Lorazepam (Ativan 2mg/ml 1ml) 1 mg Q4H PRN IV agitation 04/20/18 17:30 04/27/18 17:29 04/22/18 08:54 Metoclopramide HCl (Reglan) 10 mg Q6H PRN IVP severe nausea 04/20/18 17:30 05/20/18 17:29 Morphine Sulfate (Morphine 5mg/ 2.5ml Oral Soln) 5 mg Q4H PRN ORAL For Pain 04/21/18 15:45 05/21/18 15:44 04/22/18 09:08 Nitroglycerin (Ntg) 0.4 mg Q5M X 3 DOSES PRN SL Prn Chest Pain 04/20/18 17:30 05/20/18 17:29 Olanzapine (ZyPREXA) 10 mg BEDTIME ORAL 04/21/18 21:00 05/21/18 20:59 Ondansetron HCl (Zofran) 4 mg Q6H PRN IVP Nausea & Vomiting 04/20/18 17:30 05/20/18 17:29 Pantoprazole (Protonix) 40 mg DAILY IV 04/21/18 09:00 05/21/18 08:59 Polyethylene Glycol (Miralax) 17 gm HSPRN PRN ORAL Constipation 04/20/18 17:30 05/20/18 17:29 Promethazine HCl 25 mg/Sodium Chloride 56 ml @ 110 mls/hr Q6H PRN IV Refractory N/V 04/20/18 17:30 05/20/18 17:29 Temazepam (Restoril) 15 mg HSPRN PRN ORAL Insomnia 04/20/18 17:30 04/27/18 17:29 Elsa Singh MD Apr 22, 2018 16:32
[2018-04-22] MEDS: OLANZapine 10mg tab ORAL SCH (20:19)
--- NOTE | 2018-04-22 22:40 | General Progress Note ---
Assessment/Plan Assessment/Plan recommend to dc back to sniff Subjective Date patient seen: Apr 22, 2018 Neurologic/Psychiatric: Reports: anxiety, depressed, emotional problems Allergies: Coded Allergies: No Known Allergies (Unverified , 04/20/18) Subjective the pt uncooperative. illogical Objective Last 24 Hour Vital Signs Date Time Temp Pulse Resp B/P (MAP) Pulse Ox O2 Delivery O2 Flow Rate FiO2 04/22/18 16:01 Room Air 04/22/18 12:00 97.5 61 20 99/66 95 97.5 04/22/18 06:37 Room Air 04/22/18 06:02 97.5 04/22/18 05:03 97.5 04/22/18 04:00 97.5 65 17 115/57 96 97.5 04/22/18 00:00 Room Air 04/21/18 22:51 Room Air Intake and Output 04/21/18 04/22/18 19:00 07:00 Intake Total 1380 ml 1185 ml Balance 1380 ml 1185 ml Intake Oral 480 ml 360 ml IV Total 900 ml 825 ml # Voids 2 3 Height (Feet): 5 Height (Inches): 5.00 Weight (Pounds): 137 General Appearance: no apparent distress, alert Dewayne Lazaro M.D. Apr 22, 2018 22:40
[2018-04-23] MEDS: D5 1/2NS 1,000 ML IV SCH (06:56)
[2018-04-23] MEDS: Morphine 5mg/2.5ml Oral Soln ORAL PRN ×2 (07:04→15:41)
--- NOTE | 2018-04-23 07:43 | General Progress Note ---
Assessment/Plan Problem List: (1) COPD (chronic obstructive pulmonary disease) ICD Codes: J44.9 - Chronic obstructive pulmonary disease, unspecified SNOMED: 11066793 (2) G tube feedings ICD Codes: Z93.1 - Gastrostomy status SNOMED: 082321175, 301437287 Assessment/Plan ot pt diet cbc bmp am dc if clear by gi and psyc Subjective Constitutional: Reports: weakness Allergies: Coded Allergies: No Known Allergies (Unverified , 04/20/18) All Systems: reviewed and negative except above Subjective calm in bed Objective Last 24 Hour Vital Signs Date Time Temp Pulse Resp B/P (MAP) Pulse Ox O2 Delivery O2 Flow Rate FiO2 04/22/18 16:01 Room Air 04/22/18 12:00 97.5 61 20 99/66 95 97.5 Intake and Output 04/22/18 04/23/18 19:00 07:00 Intake Total 1225 ml 1020 ml Balance 1225 ml 1020 ml Intake Oral 400 ml 120 ml IV Total 825 ml 900 ml # Voids 2 2 Height (Feet): 5 Height (Inches): 5.00 Weight (Pounds): 137 General Appearance: lethargic EENT: normal ENT inspection Neck: normal alignment Cardiovascular: normal peripheral pulses, normal rate, regular rhythm Respiratory/Chest: chest wall non-tender, lungs clear, normal breath sounds Abdomen: normal bowel sounds, non tender, soft Extremities: normal inspection Edema: no edema noted Arm (L), no edema noted Arm (R), no edema noted Leg (L), no edema noted Leg (R), no edema noted Pedal (L), no edema noted Pedal (R), no edema noted Generalized Neurologic: motor weakness Skin: normal pigmentation, warm/dry Zana Lim DO Apr 23, 2018 07:43
--- NOTE | 2018-04-23 08:50 | General Progress Note ---
Assessment/Plan Problem List: (1) COPD (chronic obstructive pulmonary disease) ICD Codes: J44.9 - Chronic obstructive pulmonary disease, unspecified SNOMED: 38987422 (2) G tube feedings ICD Codes: Z93.1 - Gastrostomy status SNOMED: 364404349, 967231981 Assessment/Plan GT has been removed patient is eating refused ABD us fu Subjective ROS Limited/Unobtainable: Yes Allergies: Coded Allergies: No Known Allergies (Unverified , 04/20/18) Subjective refusing lots of meds Objective Last 24 Hour Vital Signs Date Time Temp Pulse Resp B/P (MAP) Pulse Ox O2 Delivery O2 Flow Rate FiO2 04/22/18 16:01 Room Air 04/22/18 12:00 97.5 61 20 99/66 95 97.5 Intake and Output 04/22/18 04/23/18 19:00 07:00 Intake Total 1225 ml 1020 ml Balance 1225 ml 1020 ml Intake Oral 400 ml 120 ml IV Total 825 ml 900 ml # Voids 2 2 Height (Feet): 5 Height (Inches): 5.00 Weight (Pounds): 137 General Appearance: alert EENT: normal ENT inspection Neck: supple Cardiovascular: normal rate Respiratory/Chest: decreased breath sounds Abdomen: normal bowel sounds, non tender, soft Extremities: non-tender Clif Reynolds MD Apr 23, 2018 08:50
[2018-04-23] MEDS: Pantoprazole Inj IV SCH (09:00)
[2018-04-23] MEDS: Heparin 5000 units/ml inj SUBQ SCH (09:00)
[2018-04-23] MEDS: Escitalopram Oxalate 5mg tab ORAL SCH (09:00)
[2018-04-23] MEDS: LORazepam Inj 2mg/ml 1ml IV PRN (09:24)
--- NOTE | 2018-04-23 11:12 | Pulmonology Progress Note ---
Assessment/Plan Problems: (1) G tube feedings (2) COPD (chronic obstructive pulmonary disease) (3) Depression (4) Psychosis Assessment/Plan tolerating feeding Gtube is removed continue psychiatric meds dvt prophylaxis refusing pt Subjective Allergies: Coded Allergies: No Known Allergies (Unverified , 04/20/18) Objective Last 24 Hour Vital Signs Date Time Temp Pulse Resp B/P (MAP) Pulse Ox O2 Delivery O2 Flow Rate FiO2 04/22/18 16:01 Room Air 04/22/18 12:00 97.5 61 20 99/66 95 97.5 Intake and Output 04/22/18 04/23/18 19:00 07:00 Intake Total 1225 ml 1020 ml Balance 1225 ml 1020 ml Intake Oral 400 ml 120 ml IV Total 825 ml 900 ml # Voids 2 2 Objective General Appearance: WD/WN HEENT: normocephalic, atraumatic Respiratory/Chest: chest wall non-tender, lungs clear Breasts: no masses Cardiovascular: normal peripheral pulses, normal rate Abdomen: normal bowel sounds, soft, non tender Genitourinary: normal external genitalia Extremities: no cyanosis Current Medications Medications (Trade) Dose Ordered Sig/Osito Route PRN Reason Start Time Stop Time Status Last Admin Dose Admin Acetaminophen (Tylenol) 650 mg Q4H PRN ORAL fever (temp>100.5F) 04/20/18 17:30 05/20/18 17:29 Al Hydroxide/Mg Hydroxide (Mylanta II) 30 ml Q6H PRN ORAL dyspepsia 04/20/18 17:30 05/20/18 17:29 Dextrose (Dextrose 50%) 25 ml STAT PRN IV hypoglycemia 04/20/18 17:45 05/20/18 17:44 Dextrose (Dextrose 50%) 50 ml STAT PRN IV Hypoglycemia 04/20/18 17:30 05/20/18 17:29 Dextrose/Sodium Chloride 1,000 ml @ 75 mls/hr [id number] IV 04/20/18 18:00 05/20/18 17:59 04/23/18 06:56 Diphenhydramine HCl (Benadryl) 25 mg Q6H PRN ORAL Itching/Pruritis 04/20/18 17:30 05/20/18 17:29 Escitalopram Oxalate (Lexapro) 15 mg DAILY ORAL 04/22/18 09:00 05/22/18 08:59 Heparin Sodium (Porcine) (Heparin 5000 units/ml) 5,000 units EVERY 12 HOURS SUBQ 04/20/18 21:00 05/20/18 20:59 Lorazepam (Ativan 2mg/ml 1ml) 1 mg Q4H PRN IV agitation 04/20/18 17:30 04/27/18 17:29 04/23/18 09:24 Metoclopramide HCl (Reglan) 10 mg Q6H PRN IVP severe nausea 04/20/18 17:30 05/20/18 17:29 Morphine Sulfate (Morphine 5mg/ 2.5ml Oral Soln) 5 mg Q4H PRN ORAL For Pain 04/21/18 15:45 05/21/18 15:44 04/23/18 07:04 Nitroglycerin (Ntg) 0.4 mg Q5M X 3 DOSES PRN SL Prn Chest Pain 04/20/18 17:30 05/20/18 17:29 Olanzapine (ZyPREXA) 10 mg BEDTIME ORAL 04/21/18 21:00 05/21/18 20:59 Ondansetron HCl (Zofran) 4 mg Q6H PRN IVP Nausea & Vomiting 04/20/18 17:30 05/20/18 17:29 Pantoprazole (Protonix) 40 mg DAILY IV 04/21/18 09:00 05/21/18 08:59 Polyethylene Glycol (Miralax) 17 gm HSPRN PRN ORAL Constipation 04/20/18 17:30 05/20/18 17:29 Promethazine HCl 25 mg/Sodium Chloride 56 ml @ 110 mls/hr Q6H PRN IV Refractory N/V 04/20/18 17:30 05/20/18 17:29 Temazepam (Restoril) 15 mg HSPRN PRN ORAL Insomnia 04/20/18 17:30 04/27/18 17:29 Elsa Singh MD Apr 23, 2018 11:12
[2018-04-23 12:00] VITALS: BP 100/51
[2018-04-23] MEDS ORDERED: MORPHINE S10 MG/5 ML ORAL (16:08)
[2018-04-23] MEDS ORDERED: LEXAPRO10 MG ORAL (16:08)
[2018-04-23] MEDS ORDERED: ZYPREXA10 MG ORAL (16:08)
[2018-04-23] MEDS ORDERED: DIPHENHYDRAMINE25 M1 ORAL (16:10)
[2018-04-23] MEDS ORDERED: MIRALAX17 G2 ORAL (16:11)
[2018-04-23] MEDS ORDERED: RESTORIL15 MG ORAL (16:12)
--- NOTE | 2018-04-24 14:55 | Discharge Summary ---
Discharge Summary Discharge Summary _ DATE OF ADMISSION: 04/20/2018 DATE OF DISCHARGE: 04/23/2018 REASON FOR ADMISSION: 63 years old female with past medical history significant for COPD, dysphagia, G -tube, GERD, schizophrenia, bipolar disorder, depression, was sent from the [facility] facility for possible G tube removal. Patient was noted to have improved and sufficient oral intake. Upon evaluation in emergency room, vital signs were stable :no fever, pulse oximetry was stable on room air. Laboratory workup was unremarkable. Patient admitted with diagnoses of gastrostomy tube in place , COPD CONSULTANTS: pulmonary Dr. Singh GI specialist Dr. Reynolds psychiatrist [facility]: Patient admitted. GI evaluation was requested. Speech therapy and dietary evaluation were attempted , but patient declined swallow evaluation 2 different occasions. Patient declined to speak with assistant clinical nurse manager, however nursing reported sufficient oral intake . Patient appeared to be well- nourished . Psychiatrist closely followed, diagnosed patient with major depression disorder and psychosis. Psychiatrist stated that the patient lacked capacity to make decisions. Psychiatric medication regimen was optimized as per psychiatrist G-tube was subsequently removed by GI specialist, who closely followed. Patient declined abdominal ultrasound as ordered by GI specialist. DVT and GI prophylaxis provided. Bowel regimen instituted. Supplemental oxygen and pulmonary toilet were on standby as needed. Patient had no signs of respiratory distress. Pulse oximetry was stable on room air. No evidence of COPD exacerbation Both, psychiatrist in GI specialist cleared patient for discharge back to [facility] facility FINAL DIAGNOSES: G-tube status , status post removal of G tube COPD Encephalopathy Major depression disorder Hypertension Psychosis DISCHARGE MEDICATIONS: See Medication Reconciliation list. DISCHARGE INSTRUCTIONS: Patient was discharged to [facility] facility ;follow-up with medical doctor at the facility I have been assigned to dictate discharge summary for this account. I was not involved in the patient's management. Dinah Schulz NP Apr 24, 2018 14:55
== END 2018-04-23 19:25 | DRG 222 ==
LOC: EDBD 16:57 → EMR 17:27 → EDBEDREQ 17:30 → OBSVTOIN 18:20 → 4W 18:20 → EDBEDREQ 18:24 → 4W 22:00
PROC: 0DP67UZ Removal of Feeding Device from Stomach, Via Natural or Artificial Opening (ICD-10-PCS; principal; 2018-04-21)
DX: Z43.1 Encounter for attention to gastrostomy (principal); G93.40 Encephalopathy, unspecified; I10 Essential (primary) hypertension; F32.9 Major depressive disorder, single episode, unspecified; J44.9 Chronic obstructive pulmonary disease, unspecified; F28 Other psychotic disorder not due to a substance or known physiological condition
CPT/HCPCS: 36415; 80053; 83690; 85025; 85610; 85730; 86850; 86900; 86901; 96360; 96361; 99285